=== PATIENT | male | born 1945 | race Caucasian/White ===

== ENCOUNTER 2018-11-08 16:09 | Outpatient (REF) | payer OTHER, SELFPAY ==
[2018-11-08 21:25] LABS: Abs Immature Grans 0.01 k/cumm (0.0-0.09); Absolute Basophil Count 0.03 k/cumm (0.0-0.2); Absolute Eosinophil Count 0.12 k/cumm (0.0-0.7); Absolute Lymphocyte Count 1.52 k/cumm (1.2-3.4); Absolute Monocyte Count 0.73 k/cumm (0.11-0.7); Absolute Neutrophil Count 3.06 k/cumm (1.2-6.7); Basophils % 0.5; Eosinophils % 2.2; HCT 39.9 % (40.0-50.0); HGB 13.7 g/dL (13.5-17.5); Immature Grans % 0.2; Lymphocytes % 27.8; Mean Corp. HGB Concentration 34.3 g/dL (32.0-36.0); Mean Corpuscular Volume 96.1 fL (80-95); Monocytes % 13.3; Platelet Count 161 x1000/uL (130-400); RBC 4.15 m/cumm (4.50-6.00); RBC Distribution Width 12.6 % (11.8-14.1); White Blood Cell Count 5.47 k/cumm (4.4-10.8)
[2018-11-08 21:26] LABS: ALT 29 U/L (12-78); AST 26 U/L (15-37); Albumin 3.7 g/dL (3.4-5.0); Alkaline Phosphatase 147 U/L (46-116); Anion Gap 9.6 mmol/L (3-11); BUN 11 mg/dL (7-18); Bilirubin, Total 0.4 mg/dL (0.2-1.0); CO2 30.4 mmol/L (21.0-32.0); CREATININE 0.96 mg/dL (0.70-1.30); Calcium 9.1 mg/dL (8.5-10.1); Chloride 103 mmol/L (98-107); Glucose 113 mg/dL (70-100); Potassium 4.1 mmol/L (3.5-5.1); Sodium 143 mmol/L (136-145)
== END 2018-11-08 16:29 ==
LOC: NCHCN 16:09
PROVIDERS: PCP Nurse Practitioner Family; Visit Provider Family Medicine
DX: R07.89 Other chest pain (principal); R10.12 Left upper quadrant pain
CPT/HCPCS: 80053; 85025

== ENCOUNTER 2021-08-13 15:06 | Outpatient (REF) | payer OTHER, SELFPAY ==
[2021-08-13 20:53] LABS: Anion Gap 7.4 mmol/L (3-11); BUN 13 mg/dL (7-18); CO2 30.6 mmol/L (21.0-32.0); CREATININE 0.9 mg/dL (0.70-1.30); Calcium 9.3 mg/dL (8.5-10.1); Calculated LDL 94 mg/dL (<100); Chloride 105 mmol/L (98-107); Cholesterol 164 mg/dL (<200); Glucose 96 mg/dL (74-106); HDL Cholesterol 58 mg/dL (40-60); Potassium 4.7 mmol/L (3.5-5.1); Sodium 143 mmol/L (136-145); Triglyceride 61 mg/dL (<150)
[2021-08-16 09:04] LABS: PSA, Screening 1.6 ng/mL (0.0-6.5)
== END 2021-08-13 15:07 | disposition home or self-care (01) ==
LOC: NCHCN 15:06
PROVIDERS: PCP Nurse Practitioner Family; Visit Provider Registered Nurse
DX: Z12.5 Encounter for screening for malignant neoplasm of prostate (principal); Z00.00 Encounter for general adult medical examination without abnormal findings; Z13.220 Encounter for screening for lipoid disorders
CPT/HCPCS: 80048; 80061; 84153

== ENCOUNTER 2021-12-03 19:20 | Outpatient (REF) | payer OTHER, SELFPAY ==
[2021-12-03 21:33] LABS: Abs Immature Grans 0.02 10^3/uL (0.0-0.06); Absolute Basophil Count 0.02 10^3/uL (0.0-0.2); Absolute Eosinophil Count 0.09 10^3/uL (0.0-0.7); Absolute Lymphocyte Count 0.61 10^3/uL (1.2-3.4); Absolute Monocyte Count 0.43 10^3/uL (0.1-0.8); Basophils % 0.6; Eosinophils % 2.6; HCT 39.2 % (40.0-50.0); HGB 13.1 g/dL (13.5-17.5); Immature Grans % 0.6; Lymphocytes % 17.6; MCH 32.3 pg (27.0-33.0); MCHC 33.4 % (32.0-36.0); MCV 96.8 fL (80-95); MPV 10.8 fL (8.0-11.0); Monocytes % 12.4; Neutrophils % 66.2; Nucleated RBC 0 %; Platelet Count 129 10^3/uL (130-400); RBC 4.05 10^6/uL (4.36-5.78); RDW 12.7 % (11.8-14.1); RDW-SD 45.3 fL; WBC 3.47 10^3/uL (4.4-10.8)
== END 2021-12-03 19:21 | disposition home or self-care (01) ==
LOC: NCHCN 19:20
PROVIDERS: PCP Nurse Practitioner Family; Visit Provider Registered Nurse
DX: Z91.89 Other specified personal risk factors, not elsewhere classified (principal)
CPT/HCPCS: 85025

== ENCOUNTER 2021-12-13 11:20 | Outpatient (REF) | payer OTHER, SELFPAY ==
[2021-12-13 21:27] LABS: Iron 117 ug/dL (65-175); Total Iron Binding Capacity 307 ug/dL (250-450); Transferrin Sat 38 % (20-55)
[2021-12-13 21:40] LABS: Ferritin 166 ng/mL (26-388)
== END 2021-12-13 11:21 | disposition home or self-care (01) ==
LOC: NCHCN 11:20
PROVIDERS: PCP Nurse Practitioner Family; Visit Provider Registered Nurse
DX: D64.9 Anemia, unspecified (principal)
CPT/HCPCS: 82728; 83540; 83550; 85025

== ENCOUNTER 2022-01-06 13:23 | Outpatient (REF) | payer OTHER, SELFPAY ==
[2022-01-06 16:40] LABS: Abs Immature Grans 0.02 10^3/uL (0.0-0.06); Absolute Basophil Count 0.02 10^3/uL (0.0-0.2); Absolute Eosinophil Count 0.08 10^3/uL (0.0-0.7); Absolute Lymphocyte Count 0.55 10^3/uL (1.2-3.4); Absolute Monocyte Count 0.39 10^3/uL (0.1-0.8); Absolute Neutrophil Count 2.07 10^3/uL (1.2-6.7); Basophils % 0.6; Eosinophils % 2.6; HCT 40.4 % (40.0-50.0); HGB 13.4 g/dL (13.5-17.5); Immature Grans % 0.6; Lymphocytes % 17.6; MCHC 33.2 % (32.0-36.0); MCV 96.4 fL (80-95); MPV 10.8 fL (8.0-11.0); Monocytes % 12.5; Neutrophils % 66.1; Nucleated RBC 0 %; Platelet Count 138 10^3/uL (130-400); RBC 4.19 10^6/uL (4.36-5.78); RDW 12.7 % (11.8-14.1); RDW-SD 45.2 fL; WBC 3.13 10^3/uL (4.4-10.8)
[2022-01-06 17:21] LABS: Folate 13.8 ng/mL (8.6-20.0); Vitamin B12 283 pg/mL (193-986)
== END 2022-01-06 13:24 | disposition home or self-care (01) ==
LOC: NCHCN 13:23
PROVIDERS: PCP Nurse Practitioner Family; Visit Provider Registered Nurse
DX: D72.810 Lymphocytopenia (principal); D64.9 Anemia, unspecified; Z91.89 Other specified personal risk factors, not elsewhere classified
CPT/HCPCS: 82607; 82746; 85025

== ENCOUNTER 2022-10-06 18:30 | Outpatient (REF) | payer MEDICARE, SELFPAY ==
[2022-10-06 17:56] LABS: Anion Gap 6.9 mmol/L (3-11); BUN 16 mg/dL (7-18); CO2 29.1 mmol/L (21.0-32.0); Calcium 9.2 mg/dL (8.5-10.1); Calculated LDL 92 mg/dL (<100); Chloride 103 mmol/L (98-107); Cholesterol 169 mg/dL (<200); Estimated GFR 78.98 (mL/min/1.73m2); Glucose 92 mg/dL (74-106); HDL Cholesterol 58 mg/dL (40-60); Potassium 4.4 mmol/L (3.5-5.1); Sodium 139 mmol/L (136-145); Triglyceride 99 mg/dL (<150)
[2022-10-07 19:52] LABS: PSA, Screening 1.5 ng/mL (<=6.5)
[2022-10-10 10:38] LABS: Hepatitis C Ab w Rflx HCV PCR Negative (Negative)
== END 2022-10-06 18:31 | disposition home or self-care (01) ==
LOC: NCHCN 18:30
PROVIDERS: PCP Nurse Practitioner Family; Visit Provider Registered Nurse
DX: Z00.00 Encounter for general adult medical examination without abnormal findings (principal); N40.1 Benign prostatic hyperplasia with lower urinary tract symptoms; Z13.220 Encounter for screening for lipoid disorders; Z11.59 Encounter for screening for other viral diseases; Z12.5 Encounter for screening for malignant neoplasm of prostate
CPT/HCPCS: 80048; 80061; 84153; 86803

== ENCOUNTER 2023-10-12 09:57 | Outpatient (REF) | payer MEDICARE, SELFPAY ==
[2023-10-12 20:57] LABS: Abs Immature Grans 0.01 10^3/uL (0.0-0.06); Absolute Basophil Count 0.03 10^3/uL (0.0-0.2); Absolute Lymphocyte Count 0.92 10^3/uL (1.2-3.4); Absolute Monocyte Count 0.49 10^3/uL (0.1-0.8); Absolute Neutrophil Count 2.61 10^3/uL (1.2-6.7); Basophils % 0.7; Eosinophils % 2.4; HCT 41.4 % (40.0-50.0); HGB 14.3 g/dL (13.5-17.5); Immature Grans % 0.2; Lymphocytes % 22.1; MCH 32.3 pg (27.0-33.0); MCHC 34.5 % (32.0-36.0); MCV 94 fL (80-95); MPV 10.7 fL (8.0-11.0); Monocytes % 11.8; Neutrophils % 62.8; Platelet Count 156 10^3/uL (130-400); RBC 4.43 10^6/uL (4.36-5.78); RDW 12.9 % (11.8-14.1); RDW-SD 44.2 fL; WBC 4.16 10^3/uL (4.4-10.8)
[2023-10-12 21:41] LABS: Anion Gap 9.3 mmol/L (3-11); BUN 14 mg/dL (7-18); CO2 25.7 mmol/L (21.0-32.0); Calcium 9.6 mg/dL (8.5-10.1); Chloride 106 mmol/L (98-107); Estimated GFR 78.49 (mL/min/1.73m2); Ferritin 134 ng/mL (26-388); Folate 15.2 ng/mL (8.6-20.0); Glucose 98 mg/dL (74-106); Potassium 4.3 mmol/L (3.5-5.1); Sodium 141 mmol/L (136-145); Vitamin B12 673 pg/mL (193-986)
[2023-10-13 19:42] LABS: PSA, Diagnostic 1.4 ng/mL (<=6.5)
== END 2023-10-12 09:58 ==
LOC: NCHCN 09:57
PROVIDERS: PCP Nurse Practitioner Family; Visit Provider Nurse Practitioner Family
DX: D64.9 Anemia, unspecified (principal); N40.0 Benign prostatic hyperplasia without lower urinary tract symptoms; Z12.5 Encounter for screening for malignant neoplasm of prostate
CPT/HCPCS: 80048; 82607; 82728; 82746; 84153; 85025

== ENCOUNTER 2024-12-05 11:12 | Outpatient (REF) | payer MEDICARE, SELFPAY ==
[2024-12-05 15:37] LABS: HCT 42.7 % (40.0-50.0); HGB 14.6 g/dL (13.5-17.5); MCH 33.2 pg (27.0-33.0); MCHC 34.2 % (32.0-36.0); MCV 97 fL (80-95); MPV 10.8 fL (8.0-11.0); Platelet Count 165 10^3/uL (130-400); RDW 12.7 % (11.8-14.1); RDW-SD 45.5 fL; WBC 6.12 10^3/uL (4.4-10.8)
[2024-12-05 16:22] LABS: Anion Gap 7.4 mmol/L (3-11); BUN 15 mg/dL (7-18); CO2 27.6 mmol/L (21.0-32.0); CREATININE 1.1 mg/dL (0.70-1.30); Calcium 9.3 mg/dL (8.5-10.1); Calculated LDL 88 mg/dL (<100); Chloride 108 mmol/L (98-107); Cholesterol 175 mg/dL (<200); Estimated GFR 69.14 (mL/min/1.73m2); Folate 15.1 ng/mL (8.6-20.0); Glucose 101 mg/dL (74-106); HDL Cholesterol 65 mg/dL (40-60); Potassium 4.3 mmol/L (3.5-5.1); Sodium 143 mmol/L (136-145); Triglyceride 114 mg/dL (<150); Vitamin B12 823 pg/mL (193-986)
== END 2024-12-05 11:13 | disposition home or self-care (01) ==
LOC: NCHCN 11:12
PROVIDERS: PCP Nurse Practitioner Family; Visit Provider Nurse Practitioner Family
DX: Z13.220 Encounter for screening for lipoid disorders (principal); R41.3 Other amnesia
CPT/HCPCS: 80048; 80061; 85027; 82607; 82746

== ENCOUNTER 2025-06-05 16:07 | Outpatient (REF) | payer MEDICARE, OTHER, SELFPAY ==
[2025-06-06 08:44] LABS: PSA, Screening 2.2 ng/mL (<=6.5)
== END 2025-06-05 16:08 | disposition home or self-care (01) ==
LOC: NCHCN 16:07
PROVIDERS: Nurse Practitioner Family; PCP Nurse Practitioner Family; Visit Provider Nurse Practitioner Family
DX: Z12.5 Encounter for screening for malignant neoplasm of prostate (principal)
CPT/HCPCS: 84153

== ENCOUNTER 2025-09-29 10:20 | Outpatient (REF) | payer MEDICARE, SELFPAY ==
[2025-09-29 16:12] LABS: HCT 43.4 % (40.0-50.0); HGB 14.5 g/dL (13.5-17.5); MCH 31.9 pg (27.0-33.0); MCHC 33.4 % (32.0-36.0); MCV 96 fL (80-95); MPV 10.8 fL (8.0-11.0); Platelet Count 170 10^3/uL (130-400); RBC 4.54 10^6/uL (4.36-5.78); RDW 12.7 % (11.8-14.1); RDW-SD 44.7 fL; WBC 4.47 10^3/uL (4.4-10.8)
[2025-09-29 16:58] LABS: ALT 31 U/L (16-63); AST 25 U/L (15-37); Albumin 4.1 g/dL (3.4-5.0); Alkaline Phosphatase 99 U/L (46-116); Anion Gap 8.5 mmol/L (3-11); BUN 16 mg/dL (7-18); Bilirubin, Total 0.8 mg/dL (0.2-1.0); CO2 28.5 mmol/L (21.0-32.0); Calcium 9.2 mg/dL (8.5-10.1); Chloride 103 mmol/L (98-107); Cholesterol 171 mg/dL (<200); Glucose 96 mg/dL (74-106); HDL Cholesterol 59 mg/dL (>or=40); Potassium 4.7 mmol/L (3.5-5.1); Sodium 140 mmol/L (136-145); Total Protein 7.8 g/dL (6.4-8.2)
[2025-09-30 09:16] LABS: PSA, Screening 1.7 ng/mL (<=6.5)
== END 2025-09-29 10:21 | disposition home or self-care (01) ==
LOC: NCHCN 10:20
PROVIDERS: PCP Nurse Practitioner Family; Visit Provider Nurse Practitioner Family
DX: Z51.81 Encounter for therapeutic drug level monitoring (principal); Z13.220 Encounter for screening for lipoid disorders; Z12.5 Encounter for screening for malignant neoplasm of prostate; D64.9 Anemia, unspecified
CPT/HCPCS: 80053; 80061; 84153; 85027